=== PATIENT | female | born 1995 | race Caucasian/White ===

== ENCOUNTER 2018-07-25 00:11 | Emergency (ER) | payer SELFPAY ==
[~2018-07-25] VITALS: Ht 165.1 cm; Wt 136.5 kg
[~2018-07-25 00:11] MED LIST: COL100 PO; FER300 PO; FLA500 PO; LAC PO; LEVAQUIN500 MG PO; MOTRIN600 MG PO; NOR10T PO; VITC PO
[2018-07-25 00:41] VITALS: BP 140/91; Ht 165.1 cm; Wt 136.5 kg
[2018-07-25 01:19] LABS: BASOPHIL % 0.4 % (0-2); PLATELET COUNT 347 x10^3mcL (130-400)
[2018-07-25 01:47] LABS: CALCIUM 9.2 mg/dL (8.5-10.1); CARBON DIOXIDE 23.9 mmol/L (21-32); CHLORIDE SERUM 105 mmol/L (98-107); CREATININE SERUM 0.5 mg/dL (0.6-1.0); GFR1 > 60 mL/min; GLUCOSE SERUM 95 mg/dL (74-106); POTASSIUM SERUM 3.3 mmol/L (3.5-5.1); SODIUM SERUM 140 mmol/L (136-145)
[2018-07-25 01:53] LABS: ALKALINE PHOSPHATASE 64 U/L (46-116); ALT/SGPT 21 U/L (14-59); AST/SGOT 12 U/L (15-37); BILIRUBIN TOTAL 0.28 mg/dL (0.20-1.00); TOTAL PROTEIN, SERUM 7.7 g/dL (6.4-8.2)
[2018-07-25 01:55] LABS: ALBUMIN 3.1 g/dL (3.4-5.0)
== END 2018-07-25 02:49 | disposition home or self-care (01) ==
LOC: ED 00:11
PROVIDERS: Emergency Medicine
DX: O26.891 Other specified pregnancy related conditions, first trimester (principal); R10.30 Lower abdominal pain, unspecified; Z3A.14 14 weeks gestation of pregnancy
CPT/HCPCS: 36415